=== PATIENT | female | born 1950 | race Caucasian/White ===

== ENCOUNTER 2017-10-09 20:01 | Emergency (ER) | payer MEDICARE, BC ==
[~2017-10-09] VITALS: Ht 160 cm; Wt 148.0 kg
[2017-10-09 20:14] VITALS: Ht 160 cm; Wt 148.0 kg
[2017-10-09] MEDS ORDERED: BELLADONNA/PHENOBARBITAL TAB PO STA (20:33)
[2017-10-09] MEDS ORDERED: FAMOTIDINE 20 MG TAB PO STA (20:33)
[2017-10-09] MEDS ORDERED: LIDOCAINE/MYLANTA 40 ML BTL PO STA (20:33)
[2017-10-09] MEDS ORDERED: ONDANSETRON 4 MG INJ IV STA (20:33)
[2017-10-09] MEDS ORDERED: SOD CHLORIDE 0.9% 1,000 ML IV STA (20:33)
--- NOTE | 2017-10-09 20:40 | ERD ---
ER Documentation Chief Complaint Chief Complaint vomiting green fluid since yesterday, ap mid to RUQ, dx'd cholecystitis 1wk HPI 67-year-old woman here for vomiting and epigastric and right upper quadrant abdominal pain similar previous episodes. She states for the last 3 weeks she has had these symptoms and she was worked up as an inpatient last week admission [facility], she states a HIDA scan performed there just a few days ago was normal, although she was told that she has symptomatic cholelithiasis. Surgery was deferred. She denies using analgesics or antiemetics at home, denies fevers or chills, no chest pain or shortness of breath, no blood per rectum or melena, no headache or blurry vision. Patient was transported here by EMS from congreg[facility] facility. ROS All systems reviewed and are negative except as per history of present illness. Medications Home Meds Active Scripts Famotidine* (Famotidine*) 40 Mg Tablet, 40 MG PO HS, #30 TAB Prov:NICHOLAS PEOPLES MD 10/09/17 Mag Hydrox/Al Hydrox/Simeth (Maalox Advanced Suspension) 355 Ml Oral.susp, 2 TSP PO TID for PAIN, #24 OZ Prov:NICHOLAS PEOPLES MD 10/09/17 Ondansetron Hcl* (Zofran*) 4 Mg Tablet, 4 MG PO Q8H Y for NAUSEA AND/OR VOMITING , #15 TAB Prov:NICHOLAS PEOPLES MD 10/09/17 Allergies Allergies: Coded Allergies: ibuprofen (Verified Allergy, Severe, tongue swelling, hives, 10/09/17) PMhx/Soc Morbid obesity, COPD, cholelithiasis, tracheostomy tube, gastrostomy tube, hypertension, FmHx Family History: No diabetes Physical Exam Vitals Vital Signs Date Time Temp Pulse Resp B/P Pulse Ox O2 Delivery O2 Flow Rate FiO2 10/09/17 20:14 98.6 72 20 142/72 95 Physical Exam GENERAL: Well-developed, well-nourished, well-hydrated, appears nauseous, afebrile HEENT: Moist mucous membranes, pink conjunctiva, no cervical spine tenderness or step-off deformities, no goiter, no jaundice or icterus, extraocular movements intact without pain. No submandibular induration, and no pharyngeal erythema NEURO: Alert and oriented 3, cranial nerves II through XII intact bilaterally, pupils equal round reactive to light, no focal deficits or facial asymmetry, sensation intact distally Strength 5/5 in upper and lower extremities bilaterally CARDIAC: Regular rate and rhythm, no murmurs rubs or gallops LUNGS: Clear bilaterally no wheezing crackles or stridor ABDOMEN: Soft nontender, no guarding, no rigidity, no rebound, no psoas sign no obturator sign. Normoactive bowel sounds SKIN: Warm and dry to touch, no abrasions, contusions, or hematomas, no lacerations, no ecchymosis, no target lesions, and without ulcers EXTREMITIES: No clubbing cyanosis or edema, calves are bilaterally symmetrical, no Homans sign, no popliteal cord sign. Distal pulses equal and bilateral PSYCH: Normal affect without agitation or irritability Result Diagram: 10/09/17202710/09/172027 Results 24 hrs Laboratory Tests Test 10/09/17 20:28 White Blood Count 11.010^3/ul Red Blood Count 4.5410^6/ul Hemoglobin 13.6g/dl Hematocrit 41.3% Mean Corpuscular Volume 91.0fl Mean Corpuscular Hemoglobin 30.0pg Mean Corpuscular Hemoglobin Concent 32.9g/dl Red Cell Distribution Width 13.1% Platelet Count 59280^3/UL Mean Platelet Volume 11.3fl Neutrophils % 68.3% Lymphocytes % 21.3% Monocytes % 8.3% Eosinophils % 1.5% Basophils % 0.4% Nucleated Red Blood Cells % 0.0/100WBC Neutrophils # 7.510^3/ul Lymphocytes # 2.410^3/ul Monocytes # 0.910^3/ul Eosinophils # 0.210^3/ul Basophils # 0.010^3/ul Nucleated Red Blood Cells # 0.010^3/ul Prothrombin Time 13.3Sec Prothrombin Time Ratio 1.0 INR International Normalized Ratio 1.00 Sodium Level 141mmol/L Potassium Level 3.7mmol/L Chloride Level 98mmol/L Carbon Dioxide Level 31mmol/L Anion Gap 16 Blood Urea Nitrogen 16mg/dl Creatinine 1.32mg/dl Glucose Level 100mg/dl Calcium Level 8.6mg/dl Total Bilirubin 0.2mg/dl Direct Bilirubin 0.00mg/dl Indirect Bilirubin 0.2mg/dl Aspartate Amino Transf (AST/SGOT) 37IU/L Alanine Aminotransferase (ALT/SGPT) 73IU/L Alkaline Phosphatase 75IU/L Total Protein 7.5g/dl Albumin 4.1g/dl Globulin 3.40g/dl Albumin/Globulin Ratio 1.20 Lipase 77U/L Current Medications Medications (Trade) Dose Ordered Sig/Sapna Route PRN Reason Start Time Stop Time Status Last Admin Dose Admin Sodium Chloride (NS) 1,000 ml @ 1,000 mls/hr Q1H STAT IV 10/09/17 20:33 10/09/17 21:32 DC 10/09/17 20:46 Ondansetron HCl (Zofran Inj) 4 mg ONCE STAT IV 10/09/17 20:33 10/09/17 20:36 DC 10/09/17 20:46 Famotidine (Pepcid) 40 mg ONCE STAT PO 10/09/17 20:33 10/09/17 20:36 DC 10/09/17 21:04 Miscellaneous Medication (Gi Cocktail (2)) 40 ml ONCE STAT PO 10/09/17 20:33 10/09/17 20:36 DC 10/09/17 21:04 Belladonna/ Phenobarbital () 2 tab ONCE STAT PO 10/09/17 20:33 10/09/17 20:36 DC 10/09/17 21:04 Clonidine (Catapres) 0.1 mg ONCE ONCE PO 10/09/17 22:00 10/09/17 22:01 DC 10/09/17 22:11 Acetaminophen/ Hydrocodone Bitart ([place] (5/325)) 1 tab ONCE ONCE PO 10/09/17 22:00 10/09/17 22:01 DC 10/09/17 21:51 Procedures/MDM IV line was established patient was placed on conveyor monitor rhythm strip revealed a sinus rhythm at about 80 bpm with upright P and T waves. Patient was afebrile I administered 500 cc normal saline intravenously, Zofran 4 mg IV 1 for nausea , GI cocktail 30 cc p.o., famotidine 40 mg p.o. 1. CBC and electrolytes were normal, liver tests were normal. X-ray Abdomen 1V Interpreted by me: Free Air: None Bowel Gas: Nonspecific, no concerning air-fluid levels Soft Tissue: Normal I administered clonidine 0.1 mg p.o. for hypertension. Patient had no episodes of vomiting or retching while in the emergency department and appears comfortable. Blood pressure improved after antihypertensive medication. Differential diagnoses considered, included but not limited to acute coronary syndrome, pulmonary embolism, aortic dissection, abdominal aortic aneurysm, sepsis, stroke, meningitis, encephalitis, pneumonia, appendicitis, cholecystitis , bowel obstruction, pyelonephritis, nephrolithiasis, cystitis, as well as metabolic, hematologic, and electrolyte abnormalities. As well as abscess, cellulitis, fractures, and dislocations. Patient feels much better at this time, and vital signs are normal, symptoms have improved. I did give strict instructions to return to the ED if symptoms continue or worsen, patient will otherwise follow-up with primary care physician. Patient understood instructions and agreed to plan. Disclaimer: Inadvertent spelling and grammatical errors are likely due to EHR/ dictation software use and do not reflect on the overall quality of patient care. Also, please note that the electronic time recorded on this note does not necessarily reflect the actual time of the patient encounter. Departure Diagnosis: Primary Impression: Cholelithiasis Cholelithiasis location: gallbladder Cholecystitis presence: without cholecystitis Biliary obstruction: without biliary obstruction Qualified Code : K80.20 - Calculus of gallbladder without cholecystitis without obstruction Additional Impressions: Abdominal pain Abdominal location: epigastric Qualified Code: R10.13 - Epigastric pain Hypertension Hypertension type: essential hypertension Qualified Code: I10 - Essential hypertension Condition: NICHOLAS Gandara MD Oct 09, 2017 20:40
[2017-10-09 20:44] LABS: BASOPHILS % 0.4 % (0.0-2.0); EOSINOPHILS # 0.2 10^3/ul (0.0-0.5); EOSINOPHILS % 1.5 % (0.0-7.0); HEMATOCRIT 41.3 % (37.0-47.0); HEMOGLOBIN 13.6 g/dl (12.0-16.0); LYMPHOCYTES # 2.4 10^3/ul (0.8-2.9); LYMPHOCYTES % 21.3 % (15.0-51.0); MEAN CORPUSCULAR HGB CONC 32.9 g/dl (32.0-37.0); MEAN PLATELET VOLUME 11.3 fl (7.4-10.4); MONOCYTE # 0.9 10^3/ul (0.3-0.9); MONOCYTES % 8.3 % (0.0-11.0); NEUTROPHIL # 7.5 10^3/ul (1.6-7.5); NEUTROPHILS % 68.3 % (39.0-77.0); PLATELET COUNT 309 10^3/UL (140-415); RED BLOOD COUNT 4.54 10^6/ul (4.20-5.40); RED CELL DISTRIBUTION WIDTH 13.1 % (11.5-14.5)
[2017-10-09 21:05] LABS: ALBUMIN 4.1 g/dl (3.3-4.9); ALBUMIN/GLOBULIN RATIO 1.2; BILIRUBIN,INDIRECT 0.2 mg/dl (0-1.1); BILIRUBIN,TOTAL 0.2 mg/dl (0.2-1.3); CALCIUM 8.6 mg/dl (8.4-10.2); CREATININE 1.32 mg/dl (0.44-1.00); POTASSIUM 3.7 mmol/L (3.5-5.1); PROTIME 13.3 Sec (11.9-14.9); TOTAL PROTEIN 7.5 g/dl (6.1-8.1)
[2017-10-09] MEDS ORDERED: MAG355OR14 PO (21:45)
[2017-10-09] MEDS ORDERED: ONDA4TAB8 PO (21:45)
[2017-10-09] MEDS ORDERED: FAMO40TA52 PO (21:45)
[2017-10-09] MEDS ORDERED: HYDROCODONE/APAP (5/325) TAB PO ONE (22:00)
[2017-10-09] MEDS ORDERED: hydrALAzine 20 MG INJ IV ONE (23:00)
[2017-10-09 23:38] VITALS: TEMP 98.6
--- NOTE | 2017-10-09 23:44 | RADRPT ---
PROCEDURE: XR Abdomen. CLINICAL INDICATION: Abdominal pain. Concern for obstruction TECHNIQUE: AP abdomen x-rays, upright and supine. A total of 7 images are obtained and submitted t o the PACS for review. COMPARISON: None. FINDINGS: The study is limited by the patient's body habitus. No free air is demonstrated below the diaphragm. A gastrostomy bulb is present projecting over the gastric air bubble which is normal in caliber. Gas is present within the colon which is normal in caliber The bowel gas pattern is normal. There is no evidence of obstruction. No visceromegaly, soft tissue mass or pathologic calcification is demonstrated. Incidental pelvic phleboliths are seen The osseous structures are unremarkable. RPTAT:HJJR IMPRESSION: 1. Limited exam because of the patient's body habitus. 2. Gastrostomy bulb in satisfactory position. 3. No evidence of bowel obstruction. Physician Genaro Date Time Electronically viewed and signed by Physician Genaro on 10/09/2017 23:44 /
[2017-10-10 01:18] VITALS: BP 152/80; PULSE 86; RESP 18
== END 2017-10-10 01:25 | disposition home or self-care (01) ==
LOC: E/R 20:01
DX: K80.20 Calculus of gallbladder without cholecystitis without obstruction (principal); I10 Essential (primary) hypertension; E66.01 Morbid (severe) obesity due to excess calories; J44.9 Chronic obstructive pulmonary disease, unspecified; Z68.43 Body mass index [BMI] 50.0-59.9, adult
CPT/HCPCS: 36415; 74010; 80053; 83690; 85025; 85610; 96374; 96375; 99284; J0360; J2405; J7030